=== PATIENT | female | born 2000 | race Caucasian/White ===

== ENCOUNTER 2019-02-14 21:16 | Emergency (ER) | payer SELFPAY ==
--- NOTE | 2019-02-14 21:59 | ER Document Report ---
ED Medical Screen (RME) - General Chief Complaint: Flank Pain Stated Complaint: LEFT SIDE PAIN Time Seen by Provider: 02/14/19 21:53 Primary Care Provider: ALCIDES DE LA PAZ MD [Primary Care Provider] - Follow up as needed Mode of Arrival: Ambulatory Information source: Patient Notes: 19-year-old female presented to ED for left upper quadrant left flank pain. She states that her dog jumped on her about 4 PM and she vomited just a little bit afterwards and then she started having left flank pain. 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 States last menstrual period was January 07 but she is not . I have greeted and performed a rapid initial assessment of this patient. A comprehensive ED assessment and evaluation of the patient, analysis of test results and completion of medical decision making process will be conducted by an additional ED providers. TRAVEL OUTSIDE OF THE [place] IN LAST 30 DAYS: No - Related Data Allergies/Adverse Reactions: No Known Allergies Allergy (Verified 02/14/19 21:55) Home Medications: Ampheta/Dextro 20mg BID Physical Exam - Vital signs Vitals: Temp Pulse Resp BP Pulse Ox 97.4 F 115 H 18 121/71 99 02/14/19 21:29 02/14/19 21:29 02/14/19 21:29 02/14/19 21:29 02/14/19 21:29 Course - Vital Signs Vital signs: Temp Pulse Resp BP Pulse Ox 97.4 F 115 H 18 121/71 99 02/14/19 21:29 02/14/19 21:29 02/14/19 21:29 02/14/19 21:29 02/14/19 21:29 Doctor's Discharge - Discharge Referrals: ALCIDES DE LA PAZ MD [Primary Care Provider] - Follow up as needed
[2019-02-14 22:37] LABS: HEMATOCRIT 45.9 % (36.0-47.0); HEMOGLOBIN 15.3 g/dL (12.0-15.5); MEAN CORPUSCULAR HEMOGLOBIN 28.7 pg (27.0-33.4); MEAN CORPUSCULAR HGB CONC 33.2 g/dL (32.0-36.0); MEAN CORPUSCULAR VOLUME 86 fl (80-97); PLATELET COUNT 270 10^3/uL (150-450); RED BLOOD COUNT 5.32 10^6/uL (3.72-5.28); RED CELL DISTRIBUTION WIDTH 13.8 % (11.5-14.0)
[2019-02-14 22:54] LABS: ALBUMIN 4.9 g/dL (3.5-5.0); ALKALINE PHOSPHATASE 80 U/L (38-126); ANION GAP 11 (5-19); ASPARTATE AMINO TRANSFERASE 27 U/L (14-36); BILIRUBIN,DIRECT 0.1 mg/dL (0.0-0.4); BILIRUBIN,TOTAL 1.1 mg/dL (0.2-1.3); BLOOD UREA NITROGEN 15 mg/dL (7-20); CALCIUM 9.7 mg/dL (8.4-10.2); CARBON DIOXIDE 26 mmol/L (22-30); CHLORIDE 103 mmol/L (98-107); GLUCOSE 101 mg/dL (75-110); TOTAL PROTEIN 8.2 g/dL (6.3-8.2)
[2019-02-14 22:58] LABS: ABSOLUTE LYMPHOCYTES# (MANUAL) 0.4 10^3/uL (0.5-4.7); ABSOLUTE MONOCYTES # (MANUAL) 0.1 10^3/uL (0.1-1.4); BAND NEUTROPHILS % (MANUAL) 3 % (3-5); BASOPHILS % (MANUAL) 0 % (0-2); EOSINOPHILS % (MANUAL) 0 % (0-6); LYMPHOCYTES % (MANUAL) 3 % (13-45); MONOCYTES % (MANUAL) 1 % (3-13); PLATELET COMMENT ADEQUATE; RBC MORPHOLOGY COMMENT NORMO-CYTIC/CHROMIC; SEGMENTED NEUTROPHILS % (MAN) 93 % (42-78); TOTAL CELLS COUNTED 100
[2019-02-14 23:34] LABS: APPEARANCE,URINE SLIGHTLY-CLOUDY; BILIRUBIN,URINE NEGATIVE (NEGATIVE); COLOR,URINE YELLOW; GLUCOSE, URINE NEGATIVE (NEGATIVE); KETONES,URINE 20 mg/dL (NEGATIVE); LEUKOCYTE ESTERASE,URINE NEGATIVE (NEGATIVE); NITRITE,URINE NEGATIVE (NEGATIVE); PROTEIN,URINE 30 mg/dL (NEGATIVE); URINE SPECIFIC GRAVITY 1.025; UROBILINOGEN,URINE NEGATIVE mg/dL (<2.0)
--- NOTE | 2019-02-15 00:23 | RADIOLOGY REPORT (SQ) ---
EXAM DESCRIPTION: [facility]: CT ABDOMEN PELVIS WITH IV CONTRAST CLINICAL HISTORY: 19 years Female; left upper abd pain/flank pain, trauma TECHNIQUE: CT of the abdomen and pelvis using intravenous contrast. All CT scans at this facility use dose modulation, iterative reconstruction, and/or weight based dosing when appropriate to reduce radiation dose to as low as reasonably achievable. COMPARISON: None. FINDINGS: Abdomen: Liver:No focal lesions. No intrahepatic ductal distention. Gallbladder:Nondistended Pancreas:Within normal limits Spleen:Within normal limits Right kidney:No hydronephrosis. No focal lesion. Left kidney:No hydronephrosis. No focal lesion. Adrenal glands:Within normal limits Vascular structures:Within normal limits Pelvis: Small bowel:No significant distention. Appendix: Nondistended. No adjacent edema. Colon: Fluid with scattered air-fluid levels throughout the colon. No significant distention. No acute pericolonic edema. No free intraperitoneal fluid or air. Bones: No acute bone findings. Bladder: Unremarkable. Uterus is unremarkable. No adnexal enlargement. IMPRESSION: 1. Air-fluid levels throughout the colon, nonspecific but typical for infectious diarrhea. 2. No bowel obstruction or perforation. No acute inflammatory changes.
--- NOTE | 2019-02-15 01:00 | ER Document Report ---
ED General - General Chief Complaint: Abdominal Injury Stated Complaint: LEFT SIDE PAIN Time Seen by Provider: 02/14/19 21:53 Primary Care Provider: ALCIDES DE LA PAZ MD [Primary Care Provider] - Follow up as needed Mode of Arrival: Ambulatory Notes: Patient is a 19-year-old female presents to the emergency department for pain in her left upper abdominal region. Patient voices this afternoon her pit bull jumped up and hit her in the left side of her abdomen. States she has had pain since. Patient voices she does have a history of a splenic laceration. Patient voices concern for her past medical history which is why she presents to the emergency department. Patient's denying any dysuria or vomiting. States she does have diarrhea "for my whole life." When asked what this means Pt states that her grandmother has Crohn's and she just assumed that she also had Crohn's. States she has intermittent lower abdominal cramping and diarrhea almost every day. Patient's denying any lower abdominal pain or cramping at this time. She is denying any vaginal discharge or dysuria. TRAVEL OUTSIDE OF THE [place] IN LAST 30 DAYS: No - Related Data Allergies/Adverse Reactions: No Known Allergies Allergy (Verified 02/14/19 21:55) Home Medications: Ampheta/Dextro 20mg BID Past Medical History - General Information source: Patient - Social History Smoking Status: Unknown if Ever Smoked Family History: Other Patient has suicidal ideation: No Patient has homicidal ideation: No Review of Systems - Review of Systems Constitutional: denies: Fever EENT: No symptoms reported Cardiovascular: No symptoms reported Respiratory: No symptoms reported Gastrointestinal: See HPI Genitourinary: See HPI Female Genitourinary: No symptoms reported Musculoskeletal: See HPI Skin: No symptoms reported Hematologic/Lymphatic: No symptoms reported Neurological/Psychological: No symptoms reported Physical Exam - Vital signs Vitals: Temp Pulse Resp BP Pulse Ox 97.4 F 115 H 18 121/71 99 02/14/19 21:29 02/14/19 21:29 02/14/19 21:29 02/14/19 21:29 02/14/19 21:29 - Notes Notes: GENERAL: Alert, interacts well. No acute distress. HEAD: Normocephalic, atraumatic. EYES: Pupils equal, round, and reactive to light. Extraocular movements intact. ENT: Oral mucosa moist, tongue midline. NECK: Full range of motion. Supple. Trachea midline. LUNGS: Clear to auscultation bilaterally, no wheezes, rales, or rhonchi. No respiratory distress. HEART: Regular rate and rhythm. No murmur Chest: No crepitus felt, no erythema or ecchymosis noted anterior/posterior chest wall. ABDOMEN: Soft, generalized tenderness noted left upper quadrant, left mid axillary abdomen region. No obvious outward signs of trauma noted. Non- distended. Bowel sounds present in all 4 quadrants. Otherwise abdominal exam benign. EXTREMITIES: Moves all 4 extremities spontaneously. No edema, normal radial and dorsalis pedis pulses bilaterally. No cyanosis. BACK: no cervical, thoracic, lumbar midline tenderness. No saddle anesthesia, normal distal neurovascular exam. NEUROLOGICAL: Alert and oriented x3. Normal speech. cranial nerves II through XII grossly intact. PSYCH: Normal affect, normal mood. SKIN: Warm, dry, normal turgor. No rashes or lesions noted. Course - Re-evaluation Re-evalutation: 02/15/19 01:09 Laboratory 02/14/19 02/14/19 02/14/19 22:05 22:05 22:05 WBC 14.0 H RBC 5.32 H Hgb 15.3 Hct 45.9 MCV 86 MCH 28.7 MCHC 33.2 RDW 13.8 Plt Count 270 Lymph % (Auto) Not Reportable Terrell % (Auto) Not Reportable Eos % (Auto) Not Reportable Baso % (Auto) Not Reportable Absolute Neuts (auto) Not Reportable Absolute Lymphs (auto) Not Reportable Absolute Monos (auto) Not Reportable Absolute Eos (auto) Not Reportable Absolute Basos (auto) Not Reportable Total Counted 100 Seg Neutrophils % Not Reportable Seg Neuts % (Manual) 93 H Band Neutrophils % 3 Lymphocytes % (Manual) 3 L Monocytes % (Manual) 1 L Eosinophils % (Manual) 0 Basophils % (Manual) 0 Abs Neuts (Manual) 13.4 H Abs Lymphs (Manual) 0.4 L Abs Monocytes (Manual) 0.1 Absolute Eos (Manual) 0.0 Abs Basophils (Manual) 0.0 Platelet Comment ADEQUATE RBC Morph Comment NORMO-CYTIC/CHROMIC Sodium 140.4 Potassium 4.0 Chloride 103 Carbon Dioxide 26 Anion Gap 11 BUN 15 Creatinine 0.65 Est GFR ( Amer) > 60 Est GFR (MDRD) Non-Af > 60 Glucose 101 Calcium 9.7 Total Bilirubin 1.1 Direct Bilirubin 0.1 Neonat Total Bilirubin Not Reportable Neonat Direct Bilirubin Not Reportable Neonat Indirect Bili Not Reportable AST 27 ALT 16 Alkaline Phosphatase 80 Total Protein 8.2 Albumin 4.9 Serum HCG, Qual NEGATIVE Urine Color Urine Appearance Urine pH Ur Specific Point Urine Protein Urine Glucose (UA) Urine Ketones Urine Blood Urine Nitrite Urine Bilirubin Urine Urobilinogen Ur Leukocyte Esterase Urine WBC (Auto) Urine RBC (Auto) Squamous Epi Cells Auto Urine Mucus (Auto) Urine Ascorbic Acid 02/14/19 22:05 WBC RBC Hgb Hct MCV MCH MCHC RDW Plt Count Lymph % (Auto) Terrell % (Auto) Eos % (Auto) Baso % (Auto) Absolute Neuts (auto) Absolute Lymphs (auto) Absolute Monos (auto) Absolute Eos (auto) Absolute Basos (auto) Total Counted Seg Neutrophils % Seg Neuts % (Manual) Band Neutrophils % Lymphocytes % (Manual) Monocytes % (Manual) Eosinophils % (Manual) Basophils % (Manual) Abs Neuts (Manual) Abs Lymphs (Manual) Abs Monocytes (Manual) Absolute Eos (Manual) Abs Basophils (Manual) Platelet Comment RBC Morph Comment Sodium Potassium Chloride Carbon Dioxide Anion Gap BUN Creatinine Est GFR ( Amer) Est GFR (MDRD) Non-Af Glucose Calcium Total Bilirubin Direct Bilirubin Neonat Total Bilirubin Neonat Direct Bilirubin Neonat Indirect Bili AST ALT Alkaline Phosphatase Total Protein Albumin Serum HCG, Qual Urine Color YELLOW Urine Appearance SLIGHTLY-CLOUDY Urine pH 9.0 Ur Specific Point 1.025 Urine Protein 30 H Urine Glucose (UA) NEGATIVE Urine Ketones 20 H Urine Blood NEGATIVE Urine Nitrite NEGATIVE Urine Bilirubin NEGATIVE Urine Urobilinogen NEGATIVE Ur Leukocyte Esterase NEGATIVE Urine WBC (Auto) 1 Urine RBC (Auto) 1 Squamous Epi Cells Auto 5 Urine Mucus (Auto) RARE Urine Ascorbic Acid NEGATIVE Abdomen/Pelvis CT 02/14/19 23:04 IMPRESSION: 1. Air-fluid levels throughout the colon, nonspecific but typical for infectious diarrhea. 2. No bowel obstruction or perforation. No acute inflammatory changes. Discussed with patient at bedside her CT results. Discussed my recommendations to follow-up with gastroenterology. Patient voices she is uninsured. We will give her follow-up [facility], [facility]. Patient initially declined any pain management in the emergency department. Continues to decline any wants for pain medication. Discussed close follow-up at [facility]. Patient stable for discharge. - Vital Signs Vital signs: Temp Pulse Resp BP Pulse Ox 97.4 F 115 H 18 121/71 99 02/14/19 21:29 02/14/19 21:29 02/14/19 21:29 02/14/19 21:29 02/14/19 21:29 - Laboratory Result Diagrams: 02/14/19 22:05 02/14/19 22:05 Laboratory results interpreted by me: 02/14/19 02/14/19 22:05 22:05 WBC 14.0 H RBC 5.32 H Seg Neuts % (Manual) 93 H Lymphocytes % (Manual) 3 L Monocytes % (Manual) 1 L Abs Neuts (Manual) 13.4 H Abs Lymphs (Manual) 0.4 L Urine Protein 30 H Urine Ketones 20 H Discharge - Discharge Clinical Impression: Abdominal trauma Qualifiers: Encounter type: initial encounter Qualified Code(s): S39.91XA - Unspecified injury of abdomen, initial encounter Condition: Stable Disposition: HOME, SELF-CARE Additional Instructions: As we discussed you have been seen and treated in the emergency department for your abdominal pain after injury. Please note that your CT does show signs of inflammation in your lower colon. This could be due to your chronic diarrhea. I am giving you phone numbers for [facility] for follow-up. These are to clinics you can go to even though you are uninsured. Please take [id number] Tylenol Motrin for generalized pain. Please return to the emergency room for any concerns. Forms: Return to Work Referrals: ALCIDES DE LA PAZ MD [Primary Care Provider] - Follow up as needed [facility] [Provider Group] - Follow up as needed [facility] [Provider Group] - Follow up as needed
[2019-02-15 01:31] VITALS: BP 120/70
== END 2019-02-15 01:29 | disposition home or self-care (01) ==
LOC: ER 21:16
DX: S39.91XA Unspecified injury of abdomen, initial encounter (principal); W54.1XXA Struck by dog, initial encounter
CPT/HCPCS: 36415; 74177; 80053; 81001; 84703; 85025; 99284